=== PATIENT | male | born 1975 | race Caucasian/White ===

== ENCOUNTER 2021-10-28 17:42 | Emergency (ER) | payer SELFPAY ==
[~2021-10-28] VITALS: Ht 175.3 cm; Wt 104.3 kg
[2021-10-28 18:02] VITALS: BP 144/51
--- NOTE | 2021-10-28 18:39 | NUR ---
PATIENT BIB [employer] [employer]. PATIENT EXAMINED BY DR. YE. PATIENT MEDICALLY CLEARED AND RELEASED IN CUSTODY IN STABLE CONDITION. ORIGINAL PRE-BOOK FORM GIVEN TO OFFICER YUNIOR.
== END 2021-10-28 18:39 ==
LOC: MED 17:42
DX: Z72.811 Adult antisocial behavior (principal); Z02.89 Encounter for other administrative examinations
CPT/HCPCS: 99283